=== PATIENT | female | born 1955 | race Caucasian/White ===

== ENCOUNTER 2016-10-19 08:22 | Outpatient (CLI) | payer BC ==
[2016-10-19] MEDS ORDERED: IOPAMIDOL-300 50 ML VIAL PO ONE (09:50)
[2016-10-19] MEDS ORDERED: IOPAMIDOL-300 100 ML VIAL IVP ONE (09:50)
--- NOTE | 2016-10-19 17:12 | CT Report ---
CONTRAST ENHANCED CT EXAM OF THE ABDOMEN AND PELVIS: 10/19/2016 CLINICAL HISTORY: Abdominal pain, possible diverticulitis. COMPARISON: 01/08/2015. TECHNIQUE: The patient received 100 mL of Isovue-[address] scan of the abdomen an d pelvis was obtained at 5 by 5 mm intervals in axial, coronal and sagittal reconstruction images. FINDINGS: The lower lung plasencia appear normal. The liver, spleen, and pancreas are normal. Surgical clips are noted in the noa hepatis related to a prior cholecystectomy. The adrenal glands appear normal. The kidneys appear normal. Pyelocaliceal s ystems and ureters are normal. Periaortic and pericaval regions show no significant abnormality. The peritoneal cavity and bowel demonstrate numerous diverticula in the sigmoid colon. Mild diverticu losis of the descending colon is noted. The examination is negative for obvious diverticulitis. No si gnificant mesenteric fat thickening is seen. The examination is negative for pericolic abscess. The s mall bowel appears normal. The bones show no significant abnormality. IMPRESSION: 1. MODERATE DEGREE OF DIVERTICULOSIS OF THE SIGMOID COLON IS SEEN WITH MILD DIVERTICULOSIS OF THE [place] CENDING COLON. THE EXAMINATION IS NEGATIVE FOR DIVERTICULITIS. 2. SURGICAL CLIPS ARE NOTED IN THE NOA HEPATIS RELATED TO A PRIOR CHOLECYSTECTOMY. 3. SMALL HIATAL HERNIA IS SEEN IN THE INFERIOR ASPECT OF THE MEDIASTINUM. In accordance with CT protocol optimization, one or more of the following dose reduction techniques w ere utilized for this exam: automated exposure control, adjustment of mA and/or KV based on patient size, or use of iterative reconstructive technique. JOB #: [id number] EXT JOB #:[id number]
== END 2016-10-19 08:23 | disposition home or self-care (01) ==
LOC: DI 08:22
PROVIDERS: ATTEND Physician Assistant
DX: K57.30 Diverticulosis of large intestine without perforation or abscess without bleeding (principal); K44.9 Diaphragmatic hernia without obstruction or gangrene; Z90.49 Acquired absence of other specified parts of digestive tract
CPT/HCPCS: 74177; Q9967

== ENCOUNTER 2017-09-05 10:04 | Outpatient (CLI) | payer BC ==
--- NOTE | 2017-09-06 12:09 | Mammography Report ---
DIGITAL SCREENING MAMMOGRAM; 09/05/2017 CLINICAL INDICATION: A 62-year-old with family history of breast cancer, history of benign biopsy, for screening. COMPARISON: 08/2015, 06/2014, 04/2012, 08/2010, 06/2009. TECHNIQUE: Routine CC and MLO projections were obtained of the breasts. FINDINGS: The breasts again demonstrate scattered fibroglandular densities bilaterally. In the left upper outer anterior breast, there is a possible obscured nodule. Further evaluation with spot compression views and possible ultrasound is recommended. Punctate, typically benign calcifications are present. No mammographically suspicious findings are appreciated in the right breast. IMPRESSION: INCOMPLETE EXAMINATION. RECOMMENDATION: ADDITIONAL EVALUATION OF THE LEFT BREAST ABOVE. BIRADS CATEGORY 0-INCOMPLETE. STANDARD QUALIFYING STATEMENTS: 1. This examination was reviewed with the aid of Computer-Aided Detection (CAD). 2. A negative or benign imaging report should not delay biopsy if clinically suspicious findings are present. Consider surgical consultation if warranted. More than 5% of cancers are not identified by imaging. 3. Dense breasts may obscure an underlying neoplasm. TD: 09/06/2017 12:08
== END 2017-09-05 10:05 | disposition home or self-care (01) ==
LOC: DI.S 10:04
PROVIDERS: ATTEND Physician Assistant
DX: Z12.31 Encounter for screening mammogram for malignant neoplasm of breast (principal); R92.8 Other abnormal and inconclusive findings on diagnostic imaging of breast; Z80.3 Family history of malignant neoplasm of breast
CPT/HCPCS: 77067

== ENCOUNTER 2018-06-04 19:44 | Emergency (ER) | payer BC ==
--- NOTE | 2018-06-04 20:03 | ED Physician Documentation ---
PD HPI ABD PAIN - Stated complaint Stated Complaint: ABD PX - Chief complaint Chief Complaint: Abd Pain - History obtained from History obtained from: Patient - History of Present Illness Timing - onset: How many weeks ago (3) Timing - details: Gradual onset, Intermittant Pain level now: 8 Quality: Other (burning) Location: All over / everywhere (predominantly epigastric) Improved by: Other (nothing) Worsened by: Eating Associated symptoms: Nausea, Diarrhea, Constipation (had dark black diarrhea 1.5 weeks ago, then had constipation. However, she has had 2-3 BM today and stool had become light brown). No: Fever, Vomiting Recently seen: Not recently seen - Additional information Additional information: c/o 3 weeks of epigastric burning which has gradually become increasingly frequent, now constant. Worse with PO intake and radiates to the rest of the abdomen. Contacted her GI doctor, cannot be seen until June. Review of Systems Constitutional: denies: Fever, Chills, Sweats Cardiac: reports: Reviewed and negative Respiratory: reports: Reviewed and negative GI: reports: Abdominal Pain, Nausea, Constipation, Diarrhea, Bloody / black stool (resolved). denies: Vomiting, Hematemesis : denies: Dysuria, Frequency Musculoskeletal: denies: Back pain PD PAST MEDICAL HISTORY - Past Medical History Cardiovascular: High cholesterol Endocrine/Autoimmune: HyPOthyroidism : Kidney stones - Past Surgical History Past Surgical History: Yes General: Cholecystectomy, Appendectomy, Bowel surgery /[employer]OTOGR[employer]HER: Hysterectomy - Present Medications Home Medications: Ambulatory Orders Medication Instructions Recorded Confirmed Cetirizine HCl/Pseudoephedrine 1 each PO BID PRN #30 tab.er.12h 05/25/15 [Zyrtec-D Tablet] Ondansetron Odt [Zofran] 4 mg TL Q6H PRN #10 tablet 05/25/15 Pseudoephedrine [Sudafed] 1 tab PO DAILY 05/25/15 05/25/15 Simvastatin 1 tab PO DAILY 05/25/15 05/25/15 Thyroid,Pork [[place] Thyroid] 1 tab PO DAILY 05/25/15 05/25/15 Esomeprazole Magnesium [Nexium] 20 mg PO DAILY #14 capsule. 06/04/18 Lidocaine HCl [Lidocaine HCl 15 ml PO QID PRN #100 ml 06/04/18 Viscous] Sucralfate [Carafate] 1 gm PO ACHS #60 tablet 06/04/18 - Allergies Allergies/Adverse Reactions: Allergies Allergy/AdvReac Type Severity Reaction Status Date / Time Penicillins Allergy Intermediate Rash Verified 06/04/18 19:53 - Social History Does the pt smoke?: No Smoking Status: Never smoker Does the pt drink ETOH?: Yes Does the pt have substance abuse?: No PD ED PE NORMAL - Vitals Vital signs reviewed: Yes - General General: Alert and oriented X 3, No acute distress, Well developed/nourished - HEENT HEENT: Moist mucous membranes - Neck Neck: Supple, no meningeal sign - Cardiac Cardiac: RRR, No murmur - Respiratory Respiratory: No respiratory distress, Clear bilaterally - Abdomen Abdomen: Soft, Non distended, Other (mild tenderness across lower abdomen, in periumbilical region, and greatest in epigastrium) - Derm Derm: Normal color, Warm and dry, No rash - Extremities Extremities: No edema Results - Vitals Vitals: Vital Signs - 24 hr 06/04/18 06/04/18 19:45 21:45 Temperature 36.6 C Heart Rate 74 70 Respiratory 18 17 Rate Blood Pressure 147/67 H 123/80 O2 Saturation 98 94 Oxygen O2 Source Room air - Labs Labs: Laboratory Tests 06/04/18 06/04/18 20:35 20:35 WBC 3.7 L RBC 4.62 Hgb 13.0 Hct 39.1 MCV 84.7 MCH 28.1 MCHC 33.2 RDW 13.6 Plt Count 232 MPV 7.3 L Neut # (Auto) 2.2 Lymph # (Auto) 0.9 L [place] # (Auto) 0.5 Eos # (Auto) 0.0 Baso # (Auto) 0.0 Absolute Nucleated RBC 0.00 Nucleated RBC % 0.1 Sodium 132 L Potassium 4.0 Chloride 99 L Carbon Dioxide 25 Anion Gap 8.0 BUN 15 Creatinine 0.6 Estimated GFR (MDRD) 101 Glucose 109 H Calcium 8.9 Total Bilirubin 0.5 AST 29 ALT 24 Alkaline Phosphatase 73 Total Protein 7.3 Albumin 3.9 Globulin 3.4 Albumin/Globulin Ratio 1.1 Lipase 26 PD MEDICAL DECISION MAKING - ED course Complexity details: reviewed results, re-evaluated patient, considered differential, d/w patient Departure - Departure Disposition: 01 Home, Self Care Clinical Impression: Abdominal pain Condition: Good Instructions: ED Abdominal Pain Unkn Cause, ED PUD Vs Gastritis Follow-Up: Michelle Farias PA [Primary Care Provider] - (Call in the morning to arrange for next available appointment) Prescriptions: Esomeprazole Magnesium [Nexium] 20 mg PO DAILY #14 capsule. Lidocaine HCl [Lidocaine HCl Viscous] 15 ml PO QID PRN #100 ml PRN Reason: Abdominal Pain Sucralfate [Carafate] 1 gm PO ACHS #60 tablet Discharge Date/Time: 06/04/18 21:55
[2018-06-04] MEDS ORDERED: PANTOPRAZOLE 80 MG in SODIUM CHLORIDE 0.9% 100ML 100 ML IV STA (20:25)
[2018-06-04] MEDS ORDERED: MAG HYDROX/AL HYDROX/SIMETH 30 ML UDC PO STA (20:25)
[2018-06-04] MEDS ORDERED: PHENobarb/HYOSCY/ATROPINE/SCOP 5 ML UDC PO STA (20:26)
[2018-06-04] MEDS ORDERED: LIDOCAINE VISCOUS 2% 15 ML UDC MM STA (20:26)
[2018-06-04 20:53] LABS: BASOPHILS % (AUTO) 0.5 %; EOSINOPHILS % (AUTO) 1.3 %; LYMPHOCYTES # (AUTO) 0.9 10^3/uL (1.5-3.5); LYMPHOCYTES % (AUTO) 23.9 %; MEAN CORPUSCULAR HEMOGLOBIN 28.1 pg (27.0-31.0); MEAN CORPUSCULAR HGB CONC 33.2 g/dL (32.0-36.0); MEAN CORPUSCULAR VOLUME 84.7 fL (81.0-99.0); MEAN PLATELET VOLUME 7.3 fL (7.9-10.8); MONOCYTES # (AUTO) 0.5 10^3/uL (0.0-1.0); MONOCYTES % (AUTO) 14.1 %; NEUTROPHILS # (AUTO) 2.2 10^3/uL (1.5-6.6); NEUTROPHILS % (AUTO) 60.2 %; PLT - PLATELET COUNT 232 10^3/uL (130-450); RED BLOOD COUNT 4.62 10^6/uL (4.20-5.40); RED CELL DISTRIBUTION WIDTH 13.6 % (12.0-15.0); WHITE BLOOD COUNT 3.7 x10^3/uL (4.8-10.8)
[2018-06-04 21:03] LABS: ALBUMIN 3.9 g/dL (3.2-5.5); ALBUMIN/GLOBULIN RATIO 1.1 (1.0-2.2); BILIRUBIN,TOTAL 0.5 mg/dL (0.2-1.0); CALCIUM 8.9 mg/dL (8.5-10.3); CREATININE 0.6 mg/dL (0.4-1.0); TOTAL PROTEIN 7.3 g/dL (6.7-8.2)
[2018-06-04 21:46] VITALS: BP 123/80
== END 2018-06-04 21:55 | disposition home or self-care (01) ==
LOC: ED 19:44
DX: R10.13 Epigastric pain (principal); R10.33 Periumbilical pain; E78.00 Pure hypercholesterolemia, unspecified; E03.9 Hypothyroidism, unspecified
CPT/HCPCS: 36415; 80053; 83690; 85025; 93005; 96365; 99283; A9270